=== PATIENT | male | born 1955 | race Caucasian/White ===

== ENCOUNTER 2017-03-08 09:46 | Observation (INO) | payer BC ==
[2017-03-08 10:14] LABS: Hematocrit 49.4 % (42.0-52.0); Hemoglobin 17.2 gm/dL (13.5-18.0); Mean Cell Volume 95.9 fl (78-100); Mean Corpuscular Hemoglobin 33.4 pg (27-31); Mean Corpuscular Hgb Conc 34.8 g/dl (32-36); Neutrophil # 4.9 K/mm3 (1.3-6.0); Platelet Count 117 K/mm3 (150-450); Red Blood Count 5.15 M/mm3 (4.7-6.0); Red Cell Distribution Width 11.4 % (11.5-14.0); White Blood Count 6.9 K/mm3 (4.0-10.5)
[2017-03-08 10:35] LABS: ALT 30 U/L (19-67); AST 27 U/L (0-48); Albumin * 4.1 gm/dl (3.4-5.0); Alkaline Phosphatase * 84 U/L (50-170); Anion Gap 5.7 mmol/L (6.8-13.8); BNP * 503 pg/mL (5-175); BUN/Creatinine Ratio 13.2 (9.0-21.6); Bilirubin, Total 0.5 mg/dL (0.0-1.1); Blood Urea Nitrogen 9 mg/dL (6-23); Calcium * 9.4 mg/dL (7.9-10.9); Carbon Dioxide 40.1 mmol/L (24-32.6); Chloride 96 mmol/L (97-106); Glucose * 182 mg/dL (70-110); Potassium 3.8 mmol/L (3.4-4.6); Sodium 138 mmol/L (132-142); Total Protein 7.8 gm/dL (6.2-8.2); Troponin I Less than 0.017 ng/ml (0.00-0.10)
[2017-03-08] MEDS ORDERED: ALBUTEROL SULFATE 2.5 MG/3 ML VIAL.NEB IH ONE (10:54)
--- NOTE | 2017-03-08 10:57 | ERNOTE ---
Dyspnea - Date Date of Service: 03/08/17 - General Presenting Symptoms: shortness of breath, difficulty of breathing, wheezing Time Seen by Provider: 03/08/17 10:17 Source: patient Exam Limitations: no limitations - Immun/Allergies/Home Medications Immunizations: IMMUNIZATION HX Immunizations Up to Date Yes History of Influenza Vaccine No Hx Pneumococcal Vaccination No Allergies/Adverse Reactions: Allergies No Known Allergies Allergy (Verified 03/08/17 09:55) Home Medications: HOME MEDICATIONS Albuterol Sulfate [Proair Hfa] 1 - 2 puff IH Q4H PRN 07/10/16 [Last Taken 04:20] Enalapril/Hydrochlorothiazide [Enalapril-Hctz 10-25 mg Tablet] 1 each PO DAILY 07/10/16 [Last Taken 08/05/16 04:20] Metoprolol Tartrate [Lopressor] 400 mg PO DAILY 07/10/16 [Last Taken 08/05/16 04 :20] Mometasone/Formoterol [Dulera 100 Mcg/5 Mcg Inhaler] 2 puff IH BID 07/10/16 [ Last Taken Unknown] Simvastatin [Zocor] 40 mg PO HS 07/10/16 [Last Taken Unknown] Tadalafil [Cialis] 20 mg PO ONCE 07/10/16 [Last Taken Unknown] Tiotropium [place] [Spiriva] 1 cap IH DAILY 07/10/16 [Last Taken 08/05/16 04:20] - History of Present Illness Narrative: Pt. comes in with three day history of increased SOB, productive cough and sinus congetion. Pt. has a hx of COPD and states that this is worse than his baseline. Pt. states that usually he only needs his O2 occasionally when he is resting but the last two days has felt severely SOB without it at all times. Review of Systems - Review of Systems Constitutional: Present: no symptoms reported, weakness, fatigue, malaise, decreased activity level. Absent: recent illness, fever, chills EYE: Present: no symptoms reported ENT: Present: nose congestion, nasal drainage. Absent: ear pain, ear discharge , pulling on ears, nose pain, sore throat, throat swelling Respiratory: Present: shortness of breath, cough, orthopnea, wheezing. Absent: stridor Cardiology: Present: no symptoms reported. Absent: chest pain, palpitations, edema Gastrointestinal/Abdominal: Present: no symptoms reported. Absent: nausea, vomiting, diarrhea, abdominal pain Genitourinary: Present: no symptoms reported Musculoskeletal: Present: no symptoms reported. Absent: back pain, joint pain Skin: Present: no symptoms reported Neurological: Present: no symptoms reported. Absent: headache, dizziness/light- headedness, numbness, tingling All Other Systems: All systems neg except as marked - Patient's Past Medical History Patient History - Medical: No pertinent hx Patient History - Cardiac/Respiratory: COPD, Hypertension, Hyperlipidemia, Other Patient History - Cancer: No Hx of Cancer Patient History - Surgical Procedures: Cataracts, Other Patient History - Other: None - Family History Brother Family History - Medical: Other Family History - Cardiac/Respiratory: No pertinent hx Father Family History - Medical: , Diabetes Type 2 Family History - Cardiac/Respiratory: No pertinent hx Mother Family History - Medical: No pertinent hx Family History - Cardiac/Respiratory: Other - Social History Living Situations: spouse Abuse History: No History of abuse Psych History: No pertinent hx Smoking Status: Heavy tobacco smoker Have you smoked in the past 12 months: Yes Alcohol Use: occasionally Drug Use: other - Immunizations Immunizations Up to Date: Yes Hx Pneumococcal Vaccination: No History of Influenza Vaccine: No Physical Exam - Physical Exam General Appearance: Present: wd/wn, alert, no apparent distress Eye Exam: Normal inspection: bilateral, PERRL: bilateral, EOMI: bilateral Ears, Nose, Throat: Present: normal ENT inspection, normal pharynx Neck: Present: normal inspection, nontender. Absent: lymphadenopathy (R), lymphadenopathy (L) Respiratory: Present: chest nontender, respiratory distress, accessory muscle use - abdomial, decreased breath sounds, crackles Cardiovascular/Chest: Present: regular rate, rhythm, no murmur, normal peripheral pulses Gastrointestinal/Abdominal: Present: normal bowel sounds, nontender, nondistended, soft, no organomegaly Back Exam: Present: normal inspection Extremity Exam: Present: normal inspection Neurological Exam: Present: alert, oriented, normal mood/affect, no motor/ sensory deficits, supervisor phosphorus processing II-XII nml as tested, normal cerebellar test Skin Exam: Present: warm/dry, pallor ED Progress - Results and Orders Patient's Lab Results:: I have reviewed the patient's lab results. - Vital Signs Patient's Vital Signs:: I have reviewed the patient's vital signs. Vital Signs: Vital Signs 03/08/17 03/08/17 03/08/17 09:51 10:06 10:08 Temperature 37.3 C Pulse Rate 78 74 73 Respiratory 22 H Rate Blood Pressure 124/75 O2 Sat by Pulse 88 L 95 Oximetry 03/08/17 03/08/17 10:32 10:46 Temperature Pulse Rate 77 78 Respiratory 20 Rate Blood Pressure 118/74 O2 Sat by Pulse 93 94 Oximetry Pt. has not been less than 30 for this provider despite charted resp rate as 20s - EKG EKG: nonspecific ST T wave changes EKG read: Reviewed by me EKG Comments: Interp by Dr Schroeder - X-Ray X-Ray #1 X-Ray: chest Interpretation: Reviewed by me X-ray Comments: hyperinflated - Progress/Reassessment Chief Complaint: Dyspnea Progress:: Improved Departure Clinical Impression: COPD exacerbation Diabetes Qualifiers: Diabetes mellitus type: type 2 Diabetes mellitus complication status: without complication Diabetes mellitus mcfp insulin use: without intermediate designer use Qualified Code(s): E11.9 - Type 2 diabetes mellitus without complications CHF (congestive heart failure) Qualifiers: Congestive heart failure type: unspecified congestive heart failure type Congestive heart failure chronicity: acute Qualified Code(s): I50.9 - Heart failure, unspecified - Departure Disposition: [facility] Condition: Fair Referrals: Bhavesh Mandujano MD [Primary Care Provider] -
[2017-03-08 11:06] LABS: Hemoglobin A1C 6.6 % (4.00-6.0)
[2017-03-08] MEDS ORDERED: ALBUTEROL SULFATE 2.5 MG/0.5 ML VIAL.NEB IH ONE (11:08)
[2017-03-08] MEDS ORDERED: LORazepam 2 MG/ML DISP.SYRIN IM ONE (11:55)
[2017-03-08] MEDS ORDERED: FUROSEMIDE 10 MG/ML VIAL IV ONE (11:56)
[2017-03-08] MEDS ORDERED: LORazepam 2 MG/ML DISP.SYRIN IV ONE (11:56)
[2017-03-08] MEDS ORDERED: METHYLPREDNISOLONE SOD SUCC/PF 40 MG/ML VIAL IV ONE (11:59)
[2017-03-08] MEDS ORDERED: LEVOFLOXACIN/D5W 750 MG/150 ML BAG IV ONE (12:00)
[2017-03-08] MEDS ORDERED: LORazepam 2 MG/ML DISP.SYRIN ONE (12:26)
[2017-03-08] MEDS ORDERED: FUROSEMIDE 10 MG/ML VIAL ONE (12:27)
[2017-03-08] MEDS ORDERED: METHYLPREDNISOLONE SOD SUCC/PF 40 MG/ML VIAL ONE (12:27)
[2017-03-08] MEDS ORDERED: BUDESONIDE 0.5 MG/2 ML VIAL.NEB IH ONE ×2 (13:33→13:34)
[2017-03-08] MEDS ORDERED: ALBUTEROL SULFATE/IPRATROPIUM 3 ML NEBU IH ONE ×2 (13:33→13:34)
[2017-03-08] MEDS ORDERED: NORMAL SALINE 1,000 ML IV ONE (16:15)
[2017-03-08] MEDS ORDERED: METHYLPREDNISOLONE SOD SUCC 80 MG in WATER FOR INJ.,BACTERIOSTATIC 0 ML IV SCH (18:00)
[2017-03-08] MEDS: BUDESONIDE 0.25 MG/2 ML VIAL.NEB IH SCH (18:13)
[2017-03-08] MEDS ORDERED: ALBUTEROL SULFATE/IPRATROPIUM 3 ML NEBU IH SCH ×2 (19:00→20:00)
--- NOTE | 2017-03-08 19:58 | HP ---
Chief Complaint - Chief Complaint Date of Service: 03/08/17 Time of Service: 19:58 Chief Complaint: " SOB, Coughing". Source of HPI- Pt; reliable, ER provider report. History of Present Illness: Mr. Ravi is a 61-yr-old WM pt of Dr. Bhavesh Mandujano with a PMH of: COPD, DM II, Erectile dysfunction, HLD & HTN. Pt states that he has had worsening SOB for the last 3 days.The SOB is worsened by any activity and even walking a short distance. He has had worsening cough and is able to expectorate thick lazo phlegm. He denies fevers and chills. He also denies wheezing, n/v, abd pain, diaphoresis, chest pain with expi & insp. He recently qualified for home Oxygen and is normally on 3 L 12/04. He is a current smoker. He smokes 3 cigars daily buts says he has not done so in the last 3 days. During evaluation at the ED, the CXR obtained did not show any acute changes invoking infiltrates, effusion or pulmonary edema. Labwork was mostly unremarkable except for and elevated BNP of 503. He will be admitted under observation status due to failed response to an initial medical management for COPD exacerbation at the ED. - Patient's Past Medical History Patient History - Medical: No pertinent hx, Diabetes Type 2 Patient History - Cardiac/Respiratory: COPD, Hypertension, Hyperlipidemia, Other Patient History - Cancer: No Hx of Cancer Patient History - Surgical Procedures: Cataracts, Other Patient History - Other: None - Family History Brother Family History - Medical: Other Family History - Cardiac/Respiratory: No pertinent hx Family History - Cancer: No pertinent family hx Father Family History - Medical: , Diabetes Type 2 Family History - Cardiac/Respiratory: No pertinent hx Family History - Cancer: Lung Mother Family History - Medical: No pertinent hx Family History - Cardiac/Respiratory: Other Family History - Cancer: No pertinent family hx - Social History Living Situations: spouse Abuse History: No History of abuse Psych History: No pertinent hx Smoking Status: Current every day smoker Have you smoked in the past 12 months: Yes Do you dip or chew tobacco: No Smoking Stop Date: 03/04/17 Patient requests Smoking Cessation Consult: No Initiate information on Smoking Cessation: No Alcohol Use: occasionally Drug Use: none, other - Immunizations Immunizations Up to Date: Yes Hx Pneumococcal Vaccination: No History of Influenza Vaccine: No Review Of Systems (GEN) - Review of Systems Generalized/Overall Review: Absent: Weakness, Fever, Malaise, Fatigue EENTM: Absent: Eye Pain, Blurred Vision Respiratory: Absent: Cough, Shortness of Breath Cardiac: Absent: Chest Pain, Edema, Palpitations Abdominal: Absent: Nausea, Vomiting, Hematemesis Genitourinary: Absent: Burning, Itching, Urgency Musculoskeletal: Absent: Joint Pain, Back Pain Neurological: Absent: Headache, Anxiety, Depressed Skin: Absent: Dryness, Lesions, Bruising Endocrine: Present: Intolerance to Heat. Absent: Intolerance to Cold, Flushing , Increased Thirst Misc: All systems neg except as marked Immunizations: IMMUNIZATION HX Immunizations Up to Date Yes History of Influenza Vaccine No Hx Pneumococcal Vaccination No Allergies/Adverse Reactions: Allergies Allergy/AdvReac Type Severity Reaction Status Date / Time No Known Allergies Allergy Verified 03/08/17 09:55 Home Medications: HOME MEDICATIONS Albuterol Sulfate [Proair Hfa] 1 - 2 puff IH Q4H PRN 07/10/16 [Last Taken 04:20] Metoprolol Tartrate [Lopressor] 200 mg PO BID 07/10/16 [Last Taken 08/05/16 04: 20] Mometasone/Formoterol [Dulera 100 Mcg/5 Mcg Inhaler] 2 puff IH BID 07/10/16 [ Last Taken Unknown] Simvastatin [Zocor] 20 mg PO HS 07/10/16 [Last Taken Unknown] Tadalafil [Cialis] 20 mg PO Q7D 07/10/16 [Last Taken Unknown] Tiotropium [place] [Spiriva] 1 cap IH DAILY 07/10/16 [Last Taken 08/05/16 04:20] Enalapril/Hydrochlorothiazide [Enalapril-Hctz 10-25 mg Tablet] 1 each PO DAILY 03/08/17 [Last Taken Unknown] metFORMIN HCL [Glucophage Xr] 500 mg PO BID 03/08/17 [Last Taken Unknown] Exam - Exam Vital Signs: Vital Signs - Last Taken Temp 36.7 C 03/08/17 14:02 Pulse 100 03/08/17 18:23 Resp 18 03/08/17 18:23 BP 133/81 03/08/17 14:03 Pulse Ox 92 03/08/17 18:13 Constitutional: Present: Alert, Oriented x3, Cooperative, No distress ENT Exam: Present: normal ENT inspection, hearing grossly normal. Absent: nasal drainage Eye Exam: bilateral eye: normal inspection, PERRL Neck: Present: full range of motion, supple, normal inspection Breasts: Present: Exam deferred Respiratory: Present: decreased breath sounds, No wheezing Cardiovascular/Chest: Present: regular rate, rhythm, no chest tenderness, no edema Abdomen: Present: Normal bowel sounds, soft, nontender /Rectal: Present: Exam deferred Extremity: Present: non-tender, normal inspection, no pedal edema Skin Exam: Present: warm/dry, no cyanosis Lymphatic: Present: no adenopathy Neurologic: Present: no motor/sensory deficits, normal mood/affect, oriented x 3 Appearance: Present: appropriate appearance, appropriate insight Eye contact: Present: cooperative, good eye contact, normal speech Thoughts: Present: normal thought pattern, no apparent hallucination Diagnostic Studies: Laboratory Results WBC 6.9 K/mm3 (4.0-10.5) 03/08/17 10:06 RBC 5.15 M/mm3 (4.7-6.0) 03/08/17 10:06 Hgb 17.2 gm/dL (13.5-18.0) 03/08/17 10:06 Hct 49.4 % (42.0-52.0) 03/08/17 10:06 MCV 95.9 fl (78-100) 03/08/17 10:06 MCH 33.4 pg (27-31) H 03/08/17 10:06 MCHC 34.8 g/dl (32-36) 03/08/17 10:06 RDW 11.4 % (11.5-14.0) L 03/08/17 10:06 Plt Count 117 K/mm3 (150-450) L 03/08/17 10:06 MPV 11.0 fl (6.0-9.5) H 03/08/17 10:06 Immature Gran % (Auto) 0.30 % (0.001-0.429) 03/08/17 10:06 Immature Gran # (Auto) 0.02 K/mm3 (0.000-0.0310) 03/08/17 10:06 Neutrophils % 71.0 % (42-75.0) 03/08/17 10:06 Lymphocytes % 14.5 % (20-51) L 03/08/17 10:06 Monocytes % 12.6 % (0.0-9) H 03/08/17 10:06 Eosinophils % 1.2 % (0.0-3.0) 03/08/17 10:06 Basophils % 0.4 % (0.0-1.0) 03/08/17 10:06 Nucleated RBC % 0.0 k/mm3 (0-1) 03/08/17 10:06 Neutrophils # 4.9 K/mm3 (1.3-6.0) 03/08/17 10:06 Lymphocytes # 1.0 k/mm3 (1.5-3.5) L 03/08/17 10:06 Monocytes # 0.9 k/mm3 (0.0-1.0) 03/08/17 10:06 Eosinophils # 0.1 k/mm3 (0.0-0.7) 03/08/17 10:06 Absolute Basophils 0.0 k/mm3 (0.0-0.1) 03/08/17 10:06 D-Dimer 0.47 mg/L (0.19-0.49) 03/08/17 10:06 pCO2 34.4 mmHg (35.0-48.0) L 03/08/17 10:49 pO2 135.6 mmHg (83.0-108.0) H 03/08/17 10:49 HCO3 24.9 mmol/L (21.0-28.0) 03/08/17 10:49 Total CO2 26.0 mmol/L (19.0-24.0) H 03/08/17 10:49 Base Excess 1.9 mmol/L (-2.0-3.0) 03/08/17 10:49 ABG pH 7.48 (7.35-7.45) H 03/08/17 10:49 ABG O2 Sat (Measured) 98.9 % (94.0-98.0) H 03/08/17 10:49 Sodium 138 mmol/L (132-142) 03/08/17 10:06 Plasma Sodium 139 mmol/L (130-142) 03/08/17 10:06 Potassium 3.8 mmol/L (3.4-4.6) 03/08/17 10:06 Chloride 96 mmol/L (97-106) L 03/08/17 10:06 Carbon Dioxide 40.1 mmol/L (24-32.6) H 03/08/17 10:06 Anion Gap 5.7 mmol/L (6.8-13.8) L 03/08/17 10:06 BUN 9 mg/dL (6-23) 03/08/17 10:06 Creatinine 0.68 mg/dL (0.4-1.4) 03/08/17 10:06 Est GFR (Non-Af Amer) 127 mL/min (60-130) D 03/08/17 10:06 BUN/Creatinine Ratio 13.2 (9.0-21.6) 03/08/17 10:06 Random Glucose 182 mg/dL (70-110) H 03/08/17 10:06 Mean Blood Glucose 134 mg/dL 03/08/17 10:06 Hemoglobin A1c 6.6 % (4.00-6.0) H 03/08/17 10:06 Calcium 9.4 mg/dL (7.9-10.9) 03/08/17 10:06 Calcium Adj for Albumin 9.0 mg/dL (8.4-10.2) 03/08/17 10:06 Total Bilirubin 0.5 mg/dL (0.0-1.1) 03/08/17 10:06 AST 27 U/L (0-48) 03/08/17 10:06 ALT 30 U/L (19-67) 03/08/17 10:06 Alkaline Phosphatase 84 U/L (50-170) 03/08/17 10:06 Troponin I Less than 0.017 ng/ml (0.00-0.10) 03/08/17 10:06 B-Natriuretic Peptide 503 pg/mL (5-175) H 03/08/17 10:06 Total Protein 7.8 gm/dL (6.2-8.2) 03/08/17 10:06 Albumin 4.1 gm/dl (3.4-5.0) 03/08/17 10:06 Assessment/Plan - Assessment/Plan (1) COPD exacerbation Assessment: Pt reported having dyspnea, cough and sputum production that was outside normal day to day variation thus necessitating an alteration in pt's normal treatment. Will cover with IV anitbiotics to prevent progression to Pneumonia and due to the fact that he is a current smoker and has hx of Diabetes along with Lung disease. Will keep up with scheduled Duoneb treatments q 4 hours and add IV solumedrol. Will also place on telemetry to ensure he does not develope A -fib during the acute pulmonary illness/COPD exacerbation. If no acute events overnight, may be okay to D/C home tomorrow on Levaquin and short course of oral steroids. Problem: Acute (2) CHF (congestive heart failure) Assessment: The CXR did not show pulmonary edema, LVH, he has no sign of pepipheral edema or nocturnal symtpoms; PND & Orthopnea. However, he has elevated BNP of 503 which is a sensitive indicator of symptomatic HF, BUT can also be less specific when pt has COPD. The only symptom is report of Dyspnea with minimal activity, and therefore watchful waiting & continued monitoring may be appropriate. May consider an Echocardiogram outpatient as elevated BNP should not be used as a stand-alone test. Problem: Suspected (3) HTN (hypertension) Assessment: Stable on Metoprolol and HCTZ Problem: Chronic (4) HLD (hyperlipidemia) Assessment: Stable- on Zocor. Problem: Chronic (5) Diabetes Problem: Chronic Qualifiers: Diabetes mellitus type: type 2
[2017-03-08] MEDS: METOPROLOL TARTRATE 100 MG TABLET PO SCH (20:34)
[2017-03-08] MEDS ORDERED: SIMVASTATIN 40 MG TABLET PO SCH (21:00)
[2017-03-08] MEDS ORDERED: METOPROLOL TARTRATE 100 MG TABLET PO SCH (21:00)
[2017-03-08] MEDS: ALBUTEROL SULFATE/IPRATROPIUM 3 ML NEBU IH SCH (22:01)
[2017-03-09] MEDS: METHYLPREDNISOLONE SOD SUCC 60 MG in WATER FOR INJ.,BACTERIOSTATIC 0 ML IV SCH ×3 (00:49→13:46)
[2017-03-09] MEDS: ALBUTEROL SULFATE/IPRATROPIUM 3 ML NEBU IH SCH ×2 (03:12→06:07)
[2017-03-09] MEDS: BUDESONIDE 0.25 MG/2 ML VIAL.NEB IH SCH (06:06)
[2017-03-09] MEDS ORDERED: ALBUTEROL SULFATE 2.5 MG/3 ML VIAL.NEB IH PRN (08:24)
--- NOTE | 2017-03-09 08:42 | DS ---
(1) COPD exacerbation Problem: Acute (2) Diabetes Problem: Chronic Qualifiers: Diabetes mellitus type: type 2 Diabetes mellitus complication status: without complication Diabetes mellitus marine oil terminal superintendent insulin use: without marine oil terminal superintendent use Qualified Code(s): E11.9 - Type 2 diabetes mellitus without complications Description of Stay: 61 y/o white male admitted because of increasing cough and shortness of breath for the last 3 days. He was seen at the emergency room chest x-ray did not show CHF nor pneumonia. BNP was slightly elevated at 500 he was given 1 dose of IV Lasix. Treated with antibiotic and Solu-Medrol. this Morning he is breathing better but still get short of breath on mild exertion Procedures Performed: none Discharge Disposition: Home self care Disposition: Home self-care Condition: Fair Discharge Activity: Activity as tolerated Discharge Diet: Consistent carbs Referrals: Bhavesh Mandujano MD [Primary Care Provider] - Additional Patient Instructions (free text): Follow-up with Dr. Mandujano in 1 week Prescriptions (Any new or edited meds): Albuterol Sulfate [Albuterol Sulfate 2.5 MG/3 ML] 2.5 mg IH Q4H 30 Days Azithromycin [Zithromax] 250 mg PO DAILY #10 tablet Roflumilast [Daliresp] 500 mcg PO DAILY #30 tab predniSONE [Prednisone] 40 mg PO DAILY 120 Days Complete Home Medications List: Complete Home Medication List: Albuterol Sulfate [Proair Hfa] 1 - 2 puff IH Q4H PRN 07/10/16 Metoprolol Tartrate [Lopressor] 200 mg PO BID 07/10/16 Mometasone/Formoterol [Dulera 100 Mcg/5 Mcg Inhaler] 2 puff IH BID 07/10/16 Simvastatin [Zocor] 20 mg PO HS 07/10/16 Tadalafil [Cialis] 20 mg PO Q7D 07/10/16 Tiotropium [place] [Spiriva] 1 cap IH DAILY 07/10/16 Enalapril/Hydrochlorothiazide [Enalapril-Hctz 10-25 mg Tablet] 1 each PO DAILY 03/08/17 metFORMIN HCL [Glucophage Xr] 500 mg PO BID 03/08/17 Albuterol Sulfate [Albuterol Sulfate 2.5 MG/3 ML] 2.5 mg IH Q4H 30 Days Azithromycin [Zithromax] 250 mg PO DAILY #10 tablet 03/09/17 Roflumilast [Daliresp] 500 mcg PO DAILY #30 tab 03/09/17 predniSONE [Prednisone] 40 mg PO DAILY 120 Days 03/09/17
[2017-03-09] MEDS ORDERED: FLUTICASONE/SALMETEROL 14 PUFF DISK.W.DEV IH SCH ×2 (09:00→21:00)
[2017-03-09] MEDS ORDERED: HYDROCHLOROTHIAZIDE 25 MG TABLET PO SCH (09:00)
[2017-03-09] MEDS ORDERED: TIOTROPIUM BROMIDE 5 CAP INHALER IH SCH (09:00)
[2017-03-09] MEDS ORDERED: ENALAPRIL MALEATE 5 MG TABLET PO SCH (09:00)
[2017-03-09] MEDS ORDERED: AZITHROMYCIN 500 MG in DEXTROSE 5 % IN WATER 250 ML IV ONE ×2 (09:00)
[2017-03-09] MEDS: METOPROLOL TARTRATE 100 MG TABLET PO SCH (09:36)
[2017-03-09 14:48] VITALS: BP 138/83
[2017-03-09] MEDS ORDERED: TADALAFIL 20 MG TABLET PO SCH (20:00)
[2017-03-09] MEDS ORDERED: SIMVASTATIN 40 MG TABLET PO SCH (21:00)
== END 2017-03-09 18:34 | disposition home or self-care (01) ==
LOC: ER 09:46 → MS 13:51
PROVIDERS: ADMIT Internal Medicine; ATTEND Internal Medicine
PROC: 4A033R1 Measurement of Arterial Saturation, Peripheral, Percutaneous Approach (ICD-10-PCS; principal; 2017-03-08)
DX: J44.1 Chronic obstructive pulmonary disease with (acute) exacerbation (principal); F17.290 Nicotine dependence, other tobacco product, uncomplicated; I50.9 Heart failure, unspecified; E11.9 Type 2 diabetes mellitus without complications; I10 Essential (primary) hypertension
CPT/HCPCS: 36415; 36600; 71020; 80053; 82803; 83036; 83880; 84484; 85025; 85379; 87040; 87070; 93005; 94640; 94760; 96365; 96366; 96367; 96375; 96376; 99284; G0378